=== PATIENT | female | born 1970 | race Caucasian/White ===

== ENCOUNTER 2017-06-23 14:16 | Inpatient (IN) | payer OTHER ==
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
--- NOTE | 2017-06-23 15:07 | CPEKG ---
Heart Rate: 65 RR Interval: 923 P-R Interval: 144 QRSD Interval: 86 QT Interval: 388 QTC Interval: 404 P [place]: 68 QRS [place]: 40 T Wave [place]: -35 EKG Severity - ABNORMAL ECG - EKG Impression: SINUS RHYTHM EKG Impression: NONSPECIFIC T ABNORMALITIES, INFERIOR LEADS Electronically Signed By: Jaclyn Acosta 24-Jun-2017 00:29:00
[2017-06-23] MEDS ORDERED: NS 1,000 ML IV ONE (15:17)
[2017-06-23 15:22] LABS: PLATELET COUNT 276 10^3/uL (150-400)
[2017-06-23] MEDS ORDERED: ALBUTEROL 3 ML DEYVIAL IH ONE (17:07)
[2017-06-23] MEDS ORDERED: NITROGLYCERIN 0.4 MG BTL SL ONE ×2 (18:03→21:41)
[2017-06-23] MEDS ORDERED: ASPIRIN 81 MG CHEWABLE TAB PO ONE (18:04)
[2017-06-23] MEDS ORDERED: MAG HYDROX/AL HYDROX/SIMETH 30 ML UDCUP PO ONE (18:40)
[2017-06-23] MEDS ORDERED: HYOSCYAMINE SULFATE 0.125 MG TAB PO ONE (18:40)
[2017-06-23] MEDS ORDERED: LIDOCAINE 2% VISCOUS 15 ML UDCUP PO ONE (18:40)
[2017-06-23] MEDS ORDERED: ONDANSETRON DISINTEGRATING 4 MG TAB PO PRN (19:33)
[2017-06-23] MEDS ORDERED: ACETAMINOPHEN 325 MG TAB PO PRN (19:33)
[2017-06-23] MEDS ORDERED: ONDANSETRON 4 MG/2 ML VIAL IVP PRN (19:33)
--- NOTE | 2017-06-23 20:04 | CPEKG ---
Heart Rate: 54 RR Interval: 1111 P-R Interval: 120 QRSD Interval: 90 QT Interval: 416 QTC Interval: 395 P [place]: -12 QRS [place]: 32 T Wave [place]: -47 EKG Severity - ABNORMAL ECG - EKG Impression: SINUS RHYTHM EKG Impression: NONSPECIFIC T ABNORMALITIES, DIFFUSE LEADS Electronically Signed By: Jaclyn Acosta 24-Jun-2017 00:28:53
--- NOTE | 2017-06-23 20:06 | GHP ---
[f rep st] HISTORY AND PHYSICAL DATE OF ADMISSION: 06/23/2017 The patient is a pleasant 47-year-old female with a strong family history of coronary artery disease, who presents with some chest symptoms. On Friday, she was doing an exercise stress test and she had symptoms she described as allergies, which was chest tightness and shortness of breath. It radiated to her left jaw. She was unable to complete the class, and this is an uncommon situation for her. She went home. She fell asleep, again uncommon. Yesterday, she went for a hike and felt poorly and went home and went to sleep. Today, she was exerting herself and she felt some chest tightness, was unable to swallow. Tried to drink some water, and then it radiated to her jaw. She went to urgent c are and she was referred to the emergency department. Her father had his 1st heart attack in his 40s. He ultimately of congestive heart failure. She has not had diabetes, high blood pressure, or hyperlipidemia. She has not a habitual cocaine user. She enjoys an active lifestyle. No fever or chills. No cough. No sputum. REVIEW OF SYSTEMS: A complete 10-point review of systems conducted and negative except as noted in t he HPI. PAST MEDICAL HISTORY: Depression. ALLERGIES: Penicillin. HOME MEDICATIONS: Lexapro. SOCIAL HISTORY: Lives in [place], originally from [place]. Does not smoke cigarettes. Drinks rare alcohol. FAMILY HISTORY: As in the HPI. PHYSICAL EXAMINATION: VITAL SIGNS: Afebrile, blood pressure 132/80, pulse 86, breathing 16 times a minute, and 98% in room air. GENERAL: No acute distress. HEENT: Sclerae anicteric. Oropharynx cl ear. Mucous membranes are moist. NECK: Supple without lymphadenopathy or JVD. LUNGS: Clear to au scultation bilaterally. HEART: S1, S2. ABDOMEN: Soft, nontender, nondistended. LOWER EXTREMITIES: Without edema. Calves nontender. SKIN: Without rash. NEUROLOGIC: Nonfocal. LABORATORY DATA: White count is 2.9, hematocrit is 43, MCV is low at 78.1, and platelets are 276,000 . D-dimer is less than 0.027. Chem 7 normal. LFTs normal. Beta hCG is negative. Lipase 111. Tro ponin less than 0.012. Chest x-ray, interpreted by me, shows no acute cardiopulmonary disease. EKG, interpreted by me, show s sinus at 65 with normal axis and intervals. There is no prior for comparison. There is a deep T-w ave inversion in lead III and F with an upright T-wave in lead II. There is 0.[address] depression in lead V2 that is not seen in III or F. the precordial leads looked okay. I have discussed the case Dr. Jaclyn Acosta. ASSESSMENT AND PLAN: A 47-year-old female with chest pain and family history: 1. Chest pain: This is a concerning story in light of an abnormal EKG and strong family history. W e will cycle troponins. She has received an aspirin. Will check a lipid panel and perform an exerci se treadmill in the morning. 2. Microcytosis: The patient has a microcytosis. She continues to menstruate. I will go ahead and check LFTs. 3. Dysphagia: This is possibly secondary to esophageal spasm. This could be considered, if her car diac workup was negative, that this symptom could be consistent with cardiac ischemia. 4. Prophylaxis: Pharmacologic prophylaxis indicated if in the hospital longer than 24 hours. For n ow, will provide sequential compression devices. DISPOSITION: Observation status. /[id number]/MODL
--- NOTE | 2017-06-23 22:04 | CPEKG ---
Heart Rate: 59 RR Interval: 1017 P-R Interval: 148 QRSD Interval: 86 QT Interval: 412 QTC Interval: 409 P [place]: 56 QRS [place]: 25 T Wave [place]: -51 EKG Severity - ABNORMAL ECG - EKG Impression: SINUS RHYTHM EKG Impression: ATRIAL PREMATURE COMPLEX EKG Impression: NONSPECIFIC T ABNORMALITIES, DIFFUSE LEADS Electronically Signed By: Jayden Quinones 24-Jun-2017 11:08:18
[2017-06-24] MEDS: ESCITALOPRAM OXALATE 10 MG TAB PO SCH (08:50)
[2017-06-24] MEDS: ASPIRIN 81 MG CHEWABLE TAB PO SCH (08:51)
[2017-06-24] MEDS ORDERED: NON-FORMULARY NEW DRUG (Herbals/Supplements -Info Only 1 UNIT) PO SCH (09:00)
--- NOTE | 2017-06-24 11:43 | CPR ---
[f rep st] NONINVASIVE CARDIAC PROCEDURE REPORT DATE OF PROCEDURE: 06/24/2017 REASON FOR TEST: Chest tightness. Resting EKG shows a regular sinus rhythm with lateral T-wave inversion. Blood pressure 98/62, heart rate 64 and regular. She reports having a mild chest tightness rating at a 2/10, which is constant and has been unchanged since admission. She otherwise has no complaints. STRESS PORTION: She was exercised according to the [place] protocol for a total of 9 minutes. She reached a MET level of 10.2, maximal blood pressure 146/60, and maximal heart rate 147, which was 85% maximal for her age. She had an occasional PAC. There were no other arrhythmias noted. With exercise, her lateral T-waves did normalize. She had an occasional PVC noted. At peak exercise, Cardiolite was injected followed by saline flush. She exercised a total of 9 minutes. At peak exercise, she did complain of feeling dizzy and winded. RECOVERY: She did spontaneously recover. There were no EKG changes. Final EKG was regular sinus rhythm. Resting recovery blood pressure 100/60. Resting recovery heart rate 77. She continues to have the mild 2/10 constant chest tightness. At this time she currently is stable for imaging. /[id number]/MODL Supervising Physician Jayden Quinones MD MTDD
--- NOTE | 2017-06-24 18:00 | PDCARPN ---
Cardiology Progress Note Chief Complaint: Left sided chest pain Assessment/Plan: Assessment: HPI: Maricruz is a 47-year-old female with a family history of coronary disease. Maricruz developed extreme fatigue during a workout on Friday. The fatigue continued after she ate dinner and went to bed. On Friday she went to yoga and for a hike with a friend. During the hike her friend thought she appeared lethargic. Maricruz felt exhausted after the hike and had to lie on the couch. She felt nauseous and was unable to swallow water. She choked on the water and began to feel lightheaded and dizzy. The next morning, Friday, she woke up and was more lethargic. She called her brother complaining of chest pain radiating into her jaw and left arm. She had associated nausea and went to the Emergency Department. Maricruz was found to have an abnormal EKG suggesting ischemia. She underwent a nuclear stress test that showed anterior wall perfusion deficit. Past Medical History: Denies. Family History: Father had first heart attack at age 53, had stents and CABG. He of CHF in 80s. Social History: Maricruz is very active. She works in [employer]. Plan: I would like Maricruz to have an angiogram given her family history, abnormal EKG, chest discomfort, and abnormal stress test. I have explained the risks, expected benefits and potential complications of this course of action with the patient and she wishes to proceed as planned. Some potential benefits include angina relief, definitive assessment of coronary anatomy and LV function. Complications have been described as , permanent and disabling stroke, heart attack, abnormal heart rhythm, bleeding and damage to blood vessels resulting in tissue or limb loss. 06/24/17 18:01 Reviewed/Discussed With: family, hospitalist Objective: Vital Signs (8 Hrs) Temp Pulse Resp BP Pulse Ox 06/24/17 16:00 36.6 C 62 16 106/62 98 06/24/17 12:00 36.8 C 61 12 110/66 99 Intake/Output (24 Hrs) 06/23/17 06/24/17 06/25/17 05:59 05:59 05:59 Intake Total 350 Output Total 800 Balance -450 Intake: Oral (ml) 350 Output: Urine (ml) 800 Toilet 800 Other: Weight 54.975 kg Result Diagrams: 06/23/17 15:07 03/05/18 15:07 Cardiac Labs: Cardiac Lab Results (72 Hrs) 06/24/17 06/23/17 06/23/17 05:41 23:20 20:10 Troponin I < 0.012 < 0.012 < 0.012 EKG: Sinus rhythm with dynamic T wave changes initially in leads III and AVF. Today she developed new T wave changes in V3 and V4 which were new. - Physical Exam Constitutional: healthy appearing Eyes: PERRL, EOMI Ears, Nose, Mouth, Throat: moist mucous membranes Cardiovascular: regular rate and rhythm Respiratory: clear to auscultate bilat, no crackles, no wheezes Gastrointestinal: no tenderness Skin: no rashes Musculoskeletal: no muscular tenderness Neurologic: AAOx3 Psychiatric: cooperative, interactive Lymph, Heme, Immunologic: no lymphadenopathy ICD10 Worksheet Patient Problems: Problems Problem Status Onset Chest tightness Acute
--- NOTE | 2017-06-24 18:25 | HOSPPROG ---
Hospitalist Progress Note Assessment/Plan: * Chest pain -stress test positive for anterior ischemia -d/w Dr. Bay - cath in am * Hyperlipidemia -will need statin if shown to be + CAD * Iron deficient anemia -still menstruating -consider outpatient colonoscopy -start ferrous sulfate * Depression -Lexapro Subjective: No more CP Objective: Vital Signs Temp Pulse Resp BP Pulse Ox 36.6 C 62 16 106/62 98 06/24/17 16:00 06/24/17 16:00 06/24/17 16:00 06/24/17 16:00 06/24/17 16:00 06/23/17 06/24/17 06/25/17 05:59 05:59 05:59 Intake Total 350 Output Total 800 Balance -450 EKG viewed, my personal interpretation is - new anterior TWI this am Laboratory Tests 06/23/17 06/24/17 23:20 05:41 Iron 45.0 TIBC 367 Iron Saturation 12 L Ferritin 7.5 Troponin I < 0.012 < 0.012 Cholesterol 205 H LDL Cholesterol, Calc 113 H - Physical Exam Constitutional: no apparent distress, appears nourished, not in pain Cardiovascular: No JVD, No edema Respiratory: no respiratory distress, No expiratory wheeze Gastrointestinal: No distension Skin: no rashes or abrasions, no fluctuance, no induration Neurologic: AAOx3, sensation intact bilaterally Psychiatric: interacting appropriately, not anxious, not encephalopathic, thought process linear ICD10 Worksheet Patient Problems: Problems Problem Status Onset Chest tightness Acute
[2017-06-24] MEDS: NITROGLYCERIN 0.4 MG BTL SL PRN (18:43)
--- NOTE | 2017-06-24 20:37 | PDMN ---
Medical Necessity Medical necessity: Patient meets inpatient criteria per physician note and MCG M -40 Angina (High-risk cardiac ischemia findings on noninvasive testing: stress test positive for anterior cardiac ischemia; strong family history of cardiac disease; LOS will be > 2 midnights for cardiac cath/further eval and treatment.)
[2017-06-24] MEDS: TEMAZEPAM 15 MG CAP PO PRN (21:21)
[2017-06-24] MEDS: FERROUS SULFATE 325 MG TAB PO SCH (21:21)
[2017-06-25 05:37] LABS: PLATELET COUNT 225 10^3/uL (150-400)
[2017-06-25] MEDS ORDERED: diphenhydrAMINE 25 MG CAP PO ONE ×2 (06:00→10:20)
[2017-06-25] MEDS ORDERED: FAMOTIDINE 20 MG TAB PO ONE (06:00)
[2017-06-25] MEDS ORDERED: DIAZEPAM 5 MG TAB PO ONE (06:00)
[2017-06-25] MEDS ORDERED: NS 1,000 ML IV ONE (06:00)
[2017-06-25 08:31] LABS: INR 1.05 (0.83-1.16); PROTIME(PATIENT) 13.9 SEC (12.0-15.0)
--- NOTE | 2017-06-25 09:06 | PDPROPOC ---
Sedation Plan of Care Sedation Plan of Care: vital signs stable, mental status noted, patient educated of risks, benefits, alternatives, patient can tolerate sedation ASA Classification: ASA 3 Planned drugs: fentanyl, midazolam Mallampati Score: Class 1 Mallampati Reference Image: Patient passed 3-3-2 rule?: Yes
--- NOTE | 2017-06-25 09:07 | CPEKG ---
Heart Rate: 63 RR Interval: 952 P-R Interval: 152 QRSD Interval: 86 QT Interval: 408 QTC Interval: 418 P [place]: 25 QRS [place]: 59 T Wave [place]: 5 EKG Severity - NORMAL ECG - EKG Impression: SINUS RHYTHM Electronically Signed By: Jayden Danielle 25-Jun-2017 11:45:10
--- NOTE | 2017-06-25 09:07 | PDHPUP ---
History & Physical Update H&P update statement: This history and physical update is based on an assessment of the patient which was completed after admission or registration (within 24 hours), but prior to the surgery/procedure. H&P update: H&P reviewed & patient examined (the patient has evidence of dynamic T wave inversion and also has abnormal nuclear stress CCS Class IV angina and intermediate risk stress test), no change in patient's condition since H&P completed
[2017-06-25] MEDS ORDERED: FAMOTIDINE 20 MG TAB ONE (10:20)
[2017-06-25] MEDS ORDERED: ASPIRIN EC 325 MG TAB PO ONE (10:21)
[2017-06-25] MEDS ORDERED: DIAZEPAM 5 MG TAB ONE (10:21)
[2017-06-25] MEDS: ASPIRIN 81 MG CHEWABLE TAB PO SCH (10:26)
[2017-06-25] MEDS ORDERED: fentaNYL 100 MCG/2 ML INJ ONE (10:35)
[2017-06-25] MEDS ORDERED: VERAPAMIL 5 MG/2 ML VIAL ONE (10:35)
[2017-06-25] MEDS ORDERED: MIDAZOLAM 2 MG/2 ML VIAL ONE (10:35)
[2017-06-25] MEDS ORDERED: LIDOCAINE 1% 300 MG/30 ML SDV ONE (10:35)
[2017-06-25] MEDS ORDERED: HEPARIN 10,000 UNIT/10 ML MDV (1,000 UNIT/ML) ONE (10:36)
[2017-06-25] MEDS ORDERED: IOPAMIDOL (ISOVUE-370) 150 ML BTL IV ONE (10:36)
[2017-06-25] MEDS: NITROGLYCERIN 0.4 MG BTL SL PRN (10:37)
[2017-06-25] MEDS ORDERED: ONDANSETRON 4 MG/2 ML VIAL ONE (10:51)
--- NOTE | 2017-06-25 10:56 | PDDXCAT ---
Diagnostic Cath Note - . Date: 06/25/17 Product Development Assistant: Shanique Indication: Patient w angina/susp CAD, cannot be risk stratified by other means , other (Abnormal stress test, EKG suggestive of ischemia, unstable angina) - Procedure Access: left wrist Procedure: left heart catheterization - Materials Left Heart Cath size: 5F Left Heart Cath materials: standard multipack (JL4, JR4, pigtail) - Findings-Left Heart Catheterization LM: The LM is 7mm in size and bifurcates into an LAD and circumflex system. There is RENE III flow with no evidence of obstruction. LAD: The LAD is 5mm in size. RENE III flow throughout. LCX: The left circumflex is 3mm in size. RENE III flow. RCA: The RCA is 3mm in size and dominant. It gives rise to the PDA and PLV branches. There is no flow limiting obstruction. EDP: 17mmHg Wall motion: There are no segmental wall motion abnormalities identified. There are 3 sinuses of Valsalva. There is no evidence of aortic stenosis on pull back. There is no alexandru aneurysm or dissection. Complications: NONE. Estimated blood loss: <50ml Closure method: Angioseal Assessment: There is no evidence of flow limiting obstruction, dissection, or thrombus. RENE III flow throughout the coronary circulation. The cause of the patient's chest discomfort is not identified on the basis of this study. Plan: Transthoracic echo will be performed to rule out pericardial effusion/ pericarditis. Intervention: NONE. Patient Problems: Problems Problem Status Onset Chest tightness Acute
[2017-06-25] MEDS ORDERED: ATROPINE SULFATE 1 MG/10 ML SYR IVP PRN (11:42)
--- NOTE | 2017-06-25 14:59 | ASMTCASEMG ---
Living Arrangements What is your living Answers: Alone arrangement? Who do you live with? Type Of Residence What kind of residence do Answers: House you live in? Discharge Plan Comments Coordination Status Comments Notes: Pts case discussed in morning rounds. Pt is a 47 y/o female admitted for chest pain. Pt will go to the company laborer today. Pt will most likely have a stent placed. Pt will most likely not have any d/c needs. No therapies ordered at this time. ROSALBA made a new PCP appointment w/ Dr. Danish Rangel, per her request. Appointment is scheduled for 07/14/17 at 9:30AM. CM inputted info into to [employer]. CM available for changes. Plan: Independent Date Signed: 06/25/2017 02:58 PM Electronically Signed By:VONNIE Martinez
[2017-06-25] MEDS ORDERED: ALBUTEROL 3 ML DEYVIAL IH ONE (15:16)
[2017-06-25] MEDS: ESCITALOPRAM OXALATE 10 MG TAB PO SCH (15:34)
[2017-06-25] MEDS: FERROUS SULFATE 325 MG TAB PO SCH ×2 (15:35→19:37)
[2017-06-25] MEDS ORDERED: IBUPROFEN 600 MG TAB PO SCH (16:00)
--- NOTE | 2017-06-25 17:16 | PDDCSUM ---
Discharge Summary Discharge Summary: 47 yo female admitted with chest pain. She reported chest pain to her left side of her chest with radiation to her left side of neck. She also reported left axillary pain. Her chest pain has gotten better. She had a stress test which was positive for anterior ischemia. However, cardiac cath was unremarkable. TTE following Cardiac cath was unremarkable per unofficial report. Official read is pending. A D-Dimer was negative Upon further questioning she reports some wheezing on onset of chest pain prior to admission. The etiology of the chest pain remains unknown but there is no e/o that the etiology is cardiovascular given an unremarkable cath. Her D-Dimer is unremarkable which would make a P.E. unlikely. Etiology could be muscular vs RAD vs costochondritis. Her pain appears to be worse on expiration. She will be d/c home with a trial of bronchodilator and Ibuprofen. She will f/u with her pcp in one week. * Chest pain * Iron deficient anemia -still menstruating -consider outpatient colonoscopy -start ferrous sulfate * Depression -Lexapro Exam: VSS NAD AAOX3 RRR CTA B, NO WHEEZING S/NT/ND NO LE EDEMA MEDS: SEE MED REC F/U: WITH PCP IN ONE WEEK TOTAL TIME SPENT ON D/C IS 45 MINUTES
--- NOTE | 2017-06-25 17:34 | ECHO ---
[email or web address] [address] [address] Main: [phone] Fax: Transthoracic Echocardiogram Name: YANY BULLARD MR#: [id number] Study Date: 06/25/2017 Study Time: 12:34 PM Date of : 1970 Age: 47 year(s) Height: 167.6 cm (66 in.) Weight: 54.89 kg (121 lb.) BSA: 1.62 m2 Gender: Female Examination: Echo Indication: Intermittent chest pain with negative cath/R/O pericardial effusion/pericarditis Image Quality: Contrast: Requested by: Faisal [place] BP: 95 mmHg/55 mmHg Heart Rate: Rhythm: Indication: Intermittent chest pain with negative cath/R/O pericardial effusion/pericarditis Procedure Staff Pathology Laboratory Technologist: Reading Physician: Jayden Quinones MD Requesting Provider: Pathology Laboratory Technologist: Amy Herrera RDCS Reading Physician: Jayden Quinones MD Requesting Provider: Conclusions: Normal size left ventricle. No LV hypertrophy. Normal global systolic LV function. The ejection fraction is estimated to be 65-70 %. Normal size right ventricle. The left atrium is normal in size. The right atrium is normal in size. Trivial to mild mitral regurgitation. The aortic valve is normal in appearance and function. Pulmonary valve not well visualized. No pericardial effusion. Trace anterior pericardial effusion with echogenicity within vs. fat pad.. Measurements: Chambers Valvular Assessment AV/MV Valvular Assessment TV/PV Normal Normal Normal Name Value Range Name Value Range Name Value Range Ao Shanae (MM): 2.9 cm (2.2 cm-3.7 AV meanP mmHg ( - ) cm) MV E Vmax: 0.64 m/s ( - ) IVSd (2D): 0.5 cm (0.6 cm-1.1 MV A Vmax: 0.41 m/s ( - ) cm) MV E/A: 1.56 ( - ) LVDd (2D): 4.5 cm (3.9 cm-5.3 cm) LVDs (2D): 2.7 cm (2.1 cm-4 cm) LVPWd (2D): 0.6 cm ( - ) Patient: YANY BULLARD Study Date: 06/25/2017 Page 1 of 2 12:34 PM LVEF (MOD4): 70 % (>=55 %) EF Range: 65-70 % Continued Measurements: Chambers Valvular Assessment AV/MV Name Value Name Value LADs: 2.8 cm MV E/E' Septal: 7.90 LADs Lon.5 cm MV E/E' Lateral: 7.20 LA Area: 14.8 cm2 Findings: Left Ventricle: Normal size left ventricle. No LV hypertrophy. Normal global systolic LV function. The ejection fraction is estimated to be 65-70 %. No regional wall motion abnormality. Normal diastolic LV function. Right Ventricle: Normal size right ventricle. Left Atrium: The left atrium is normal in size. Right Atrium: The right atrium is normal in size. Mitral Valve: The mitral valve is normal in appearance and function. Trivial to mild mitral regurgitation. Aortic Valve: The aortic valve is normal in appearance and function. Tricuspid Valve: The tricuspid valve is normal in appearance and function. Pulmonic Valve: Pulmonary valve not well visualized. Aorta: The aorta is normal. Pericardium: No pericardial effusion. Trace anterior pericardial effusion with echogenicity within vs. fat pad.. (No Signature Object) Patient: YANY BULLARD Study Date: 06/25/2017 Page 2 of 2 12:34 PM [id number]
[2017-06-25] MEDS: KETOROLAC 30 MG/1 ML SDV IVP SCH (19:33)
[2017-06-25] MEDS: TEMAZEPAM 15 MG CAP PO PRN (22:35)
[2017-06-26] MEDS: KETOROLAC 30 MG/1 ML SDV IVP SCH (06:42)
[2017-06-26 08:08] VITALS: BP 115/59; PULSE 62; RESP 14; TEMP 97.7; O2SAT 95
[2017-06-26] MEDS: FERROUS SULFATE 325 MG TAB PO SCH (09:14)
[2017-06-26] MEDS: ASPIRIN 81 MG CHEWABLE TAB PO SCH (09:14)
[2017-06-26] MEDS: ESCITALOPRAM OXALATE 10 MG TAB PO SCH (09:14)
--- NOTE | 2017-06-26 11:55 | PDDCSUM ---
Discharge Summary Discharge Summary: The patient discharge was held due recurrence of left chest/shoulder pain. She was started on Toradol with much improvement. She c/o of minimal discomfort today. She is in agreement with discharge. HPI/HOSPITAL COURSE 47 yo female admitted with chest pain. She reported chest pain to her left side of her chest with radiation to her left side of neck. She also reported left axillary pain. Her chest pain has gotten better. She had a stress test which was positive for anterior ischemia. However, cardiac cath was unremarkable. TTE following Cardiac cath was unremarkable A D-Dimer was negative The etiology of the chest pain remains unknown, possibly pericarditis vs costochondritis vs other muscular skeletal. She has improved with NSAIDS. She will f/u with her pcp in one week. * Chest pain * Iron deficient anemia -still menstruating -consider outpatient colonoscopy -start ferrous sulfate * Depression -Lexapro Exam: VSS NAD AAOX3 RRR CTA B, NO WHEEZING Non Reproducible Chest pain S/NT/ND NO LE EDEMA MEDS: SEE MED REC. Ibuprofen scheduled was started Consultants: Cardiology F/U: WITH PCP IN ONE WEEK TOTAL TIME SPENT ON D/C IS 35 MINUTES
== END 2017-06-26 11:35 | disposition home or self-care (01) | DRG 287 ==
LOC: F2W 20:18 → OBSVTOIN 06-24 17:24
PROVIDERS: ADMIT Internal Medicine; ATTEND Family Medicine
PROC: 4A023N7 Measurement of Cardiac Sampling and Pressure, Left Heart, Percutaneous Approach (ICD-10-PCS; principal; 2017-06-25)
PROC: B2151ZZ Fluoroscopy of Left Heart using Low Osmolar Contrast (ICD-10-PCS; principal; 2017-06-25)
PROC: B2111ZZ Fluoroscopy of Multiple Coronary Arteries using Low Osmolar Contrast (ICD-10-PCS; principal; 2017-06-25)
DX: R07.89 Other chest pain (principal); R94.39 Abnormal result of other cardiovascular function study; Z82.49 Family history of ischemic heart disease and other diseases of the circulatory system; D50.9 Iron deficiency anemia, unspecified; F32.9 Major depressive disorder, single episode, unspecified; E78.5 Hyperlipidemia, unspecified
CPT/HCPCS: A9500; G0378; J1644; J1885; J2250; J2405; J3010; J7613; Q9967

== ENCOUNTER 2018-04-21 11:48 | Inpatient (IN) | payer OTHER ==
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
[2018-04-21] MEDS ORDERED: ONDANSETRON 4 MG/2 ML VIAL IVP ONE (12:42)
[2018-04-21] MEDS ORDERED: HYDROmorphONE/DILAUDID 2 MG/ML INJ IVP ONE ×2 (12:42→13:58)
[2018-04-21] MEDS ORDERED: NS 1,000 ML IV ONE (12:42)
[2018-04-21 13:05] LABS: PLATELET COUNT 234 10^3/uL (150-400)
[2018-04-21 13:14] LABS: INR 1.06 (0.83-1.16)
[2018-04-21] MEDS ORDERED: IOPAMIDOL (ISOVUE 370) 100 ML BTL IV ONE (13:21)
[2018-04-21] MEDS ORDERED: HYDROmorphONE/DILAUDID 1 MG/ML INJ ONE (13:57)
[2018-04-21] MEDS ORDERED: PROMETHAZINE HCL 25 MG/ML INJ IVP PRN (14:20)
[2018-04-21] MEDS ORDERED: ACETAMINOPHEN 325 MG TAB PO PRN (14:20)
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
[2018-04-21] MEDS ORDERED: LR 1,000 ML IV ONE (15:19)
[2018-04-21] MEDS ORDERED: MIDAZOLAM 2 MG/2 ML VIAL IVP ONE (15:56)
--- NOTE | 2018-04-21 15:57 | PDANEPAE ---
ANE History of Present Illness labial hematoma evacuation ANE Past Medical History - Pulmonary History Hx Oxygen in Use at Home: No Hx Sleep Apnea: No - Endocrine History Hx Diabetes: No - Chronic Pain History Chronic Pain: No ANE Review of Systems Review of Systems: ANE Patient History - Allergies Allergies/Adverse Reactions: Penicillins Allergy (Unknown, Verified 04/21/18 15:49) Other-Enter Comments - Home Medications Home Medications: Albuterol [Proventil Inhaler HFA (*)] 1 - 2 puffs IH Q6H PRN 04/21/18 [Last Taken Unknown] Escitalopram Oxalate [Lexapro] 5 mg PO DAILY 04/21/18 [Last Taken 04/21/18] - Smoking Hx Smoking Status: Never smoked ANE Labs/Vital Signs - Labs Result Diagrams: 04/22/18 04:38 04/21/18 12:53 - Vital Signs Blood Pressure: 134/71 Heart Rate: 88 Respiratory Rate: 16 O2 Sat (%): 95 Height: 167.64 cm Weight: 58.06 kg ANE Physical Exam - Airway Neck exam: FROM Mallampati Score: Class 1 Mouth exam: normal dental/mouth exam - Pulmonary Pulmonary: no respiratory distress - Cardiovascular Cardiovascular: regular rate and rhythym - ASA Status ASA Status: II ANE Anesthesia Plan Anesthesia Plan: general endotracheal anesthesia Urgent/Emergent Case: Dilan chao completed preop but documented later for safe timely pt care
[2018-04-21] MEDS ORDERED: LIDOCAINE 2% 100 MG/5 ML SYR ONE (16:02)
[2018-04-21] MEDS ORDERED: PROPOFOL 200 MG/20 ML VIAL ONE (16:03)
[2018-04-21] MEDS ORDERED: fentaNYL 100 MCG/2 ML INJ ONE ×2 (16:03→17:52)
[2018-04-21] MEDS ORDERED: SUGAMMADEX SODIUM 200 MG/2 ML VIAL IVP ONE (16:03)
[2018-04-21] MEDS ORDERED: ONDANSETRON 4 MG/2 ML VIAL ONE (16:03)
[2018-04-21] MEDS ORDERED: KETOROLAC 30 MG/1 ML SDV ONE (16:03)
[2018-04-21] MEDS ORDERED: ROCURONIUM 50 MG/5 ML VIAL ONE (16:03)
[2018-04-21] MEDS ORDERED: DEXAMETHASONE 4 MG/ML VIAL ONE (16:03)
[2018-04-21] MEDS ORDERED: BUPIVACAINE 0.5% 30 ML SDV ONE (16:04)
[2018-04-21] MEDS ORDERED: MIDAZOLAM 2 MG/2 ML VIAL ONE (16:06)
--- NOTE | 2018-04-21 16:19 | ASMTCMCOM ---
CM Note CM Note Notes: Reviewed chart. Pt presented to the Emergency Department after falling on a shovel last night. History includes sinus surgery and a prior craniotomy. Pt is single, employed and lives in [place]. Pt is accompanied by several friends and has a good support network. Pt to be admitted for surgical evacuation of a hematoma on her buttock and for further observation. Discharge needs remain unclear at this time. Anticipate pt will likely discharge home independently when medically stable. CM will continue to follow. Discharge Plan: Likely independent, CM to follow for any potential needs Date Signed: 04/21/2018 04:18 PM Electronically Signed By:Nemo Salmon RN
[2018-04-21] MEDS ORDERED: ePHEDrine SULFATE 25 MG/5 ML SYR ONE (16:27)
[2018-04-21] MEDS ORDERED: ONDANSETRON 4 MG/2 ML VIAL IVP PRN (16:37)
[2018-04-21] MEDS ORDERED: LR 500 ML IV PRN (16:37)
[2018-04-21] MEDS ORDERED: HYDROCODONE/APAP 5/325 TAB PO PRN (16:37)
[2018-04-21] MEDS ORDERED: oxyCODONE IR 5 MG TAB PO PRN (16:37)
[2018-04-21] MEDS ORDERED: ALBUTEROL 3 ML DEYVIAL IH PRN (16:37)
[2018-04-21] MEDS ORDERED: HYDROmorphONE/DILAUDID 2 MG/ML INJ IVP PRN (16:37)
[2018-04-21] MEDS ORDERED: ACETAMINOPHEN 500 MG TAB PO PRN (16:37)
[2018-04-21] MEDS ORDERED: NALOXONE HCL 0.4 MG/ML INJ IVP PRN (16:37)
[2018-04-21] MEDS ORDERED: fentaNYL 100 MCG/2 ML INJ IVP PRN (16:37)
[2018-04-21] MEDS ORDERED: METOCLOPRAMIDE 10 MG/2 ML VIAL IVP PRN (16:37)
[2018-04-21] MEDS ORDERED: ceFAZolin 2 GM/DEXTROSE 100 ML IV ONE (17:00)
--- NOTE | 2018-04-21 17:55 | POSTOPPROG ---
Post Op Note Date of Operation: 04/21/18 Surgeon: Fiona Wilkes Anesthesiologist: alfred Anesthesia: GET(General Endotracheal) Pre-op Diagnosis: buttock hematoma Post-op Diagnosis: same Indication: 48 yo with buttock and labia hematoma Procedure: eua evac hematoma Findings: depth 17 cm Inf/Abcess present in the surg proc area at time of surgery?: No Depth: Superfical (Skin SQ) EBL: 50-100 Drains: Milo Reyez
--- NOTE | 2018-04-21 18:08 | GOP ---
DATE OF OPERATION: 04/21/2018 SURGEON: Fiona Wilkes MD ANESTHESIA: General. ANESTHESIOLOGIST: Marv Mensah MD. PREOPERATIVE DIAGNOSIS: Large hematoma, buttock and labia. POSTOPERATIVE DIAGNOSIS: Large hematoma, buttock and labia. PROCEDURE PERFORMED: Exam under anesthesia and evacuation of hematoma. FINDINGS: The hematoma was extremely large, measuring at least 17 cm in depth, and going from her right labia down past her buttock. SPECIMENS: None. ESTIMATED BLOOD LOSS: 100 cc of old blood and clot. INDICATIONS: The patient is a 48-year-old woman, who fell last night, striking her buttock on a blunt object. The hematoma became tense, and she was having trouble even urinating. DESCRIPTION OF PROCEDURE: The patient was brought into the operating room and placed supine on the table. General anesthesia was administered. She was placed in a lithotomy position. Her perineum and bottom were prepped and draped in the usual sterile fashion. I began by doing a vaginal exam. I did not see any tearing of the vaginal wall. I then examined her rectum and again did not see any abnormalities. I made an incision over her right buttock, dissected down through the subcutaneous tissue, and immediately entered a very large hematoma cavity. I had to evacuate a lot of old clot. I performed suction irrigation. There was clearly disruption of muscle layer. Hemostasis was very difficult to achieve due to muscle being involved. I placed Surgicel and direct pressure. I performed electrocautery, and I also placed Rebecca. At the end of the case, I was satisfied with hemostasis. As the depth was 17 cm, it was very difficult to adequately visualize the entire area. I placed a 19 round channel drain exiting the right buttock and sewed this into place with 3- 0 nylon. I closed the skin with 3-0 nylon. Dressings were applied. She was taken out of the lithotomy position, awakened, extubated, and transferred to PACU in stable condition. /[id number]/MODL MTDD
[2018-04-21] MEDS: ONDANSETRON 4 MG/2 ML VIAL IVP PRN (19:20)
[2018-04-21] MEDS: LORazepam 1 MG TAB PO PRN (20:09)
[2018-04-21] MEDS: NS 1,000 ML IV SCH (20:11)
[2018-04-21] MEDS: HYDROCODONE/APAP 5/325 TAB PO PRN (20:21)
[2018-04-22] MEDS: ONDANSETRON 4 MG/2 ML VIAL IVP PRN ×3 (00:56→09:44)
[2018-04-22 05:15] LABS: PLATELET COUNT 165 10^3/uL (150-400)
[2018-04-22] MEDS ORDERED: ACETAMINOPHEN 325 MG TAB PO ONE (06:32)
--- NOTE | 2018-04-22 09:38 | SOAPPROG ---
SOAP Progress Note Assessment/Plan: Assessment: POD # 1 s/p evacuation large hematoma buttock and labia. It extends about 17 cm. Acute anemia blood loss. Will transfuse 1 unit as was also more hypotensive this am Now with ecchymosis and fullness RLQ. I suspect this is residual effects from trauma. Will order stat RLQ ultrasound Continue JOHAN drain No Lovenox due to ongoing blood loss SCDS Ambulate Saw at 6:40 and 9:30 am S: More abdominal pain today Lying in bed, appears comfortable CTAB RRR More ecchymosis on abdomen and swelling RLQ. BS present Dressing on bottom cdi Drain with serosang fluid. Much thinner than yesterday Dark ecchymosis but not hard like yesterday Plan: 04/22/18 09:35 Objective: Vital Signs Temp Pulse Resp BP Pulse Ox 37.0 C 73 16 97/63 L 98 04/22/18 09:06 04/22/18 09:06 04/22/18 09:06 04/22/18 09:06 04/22/18 09:06 Laboratory Results 04/22/18 04:38 04/21/18 04/22/18 04/23/18 05:59 05:59 05:59 Intake Total 2511 Output Total 865 40 Balance 1646 -40 PT 14.0 SEC (12.0-15.0) 04/21/18 12:53 INR 1.06 (0.83-1.16) 04/21/18 12:53 ICD10 Worksheet Patient Problems: Problems Problem Status Onset Traumatic hematoma of buttock Acute Chest tightness Acute
[2018-04-22] MEDS: NS 1,000 ML IV SCH (09:44)
--- NOTE | 2018-04-22 12:08 | ASMTCMCOM ---
CM Note CM Note Notes: Chart reviewed for dc planning purposes, Patient s/o evacuation of buttock/labial hematomo. Anemic this am. To recieve unit of PRBC. CM to follow for needs. Plan: TBD Date Signed: 04/22/2018 12:07 PM Electronically Signed By:Reina García RN
[2018-04-22] MEDS: LORazepam 1 MG TAB PO PRN (18:16)
--- NOTE | 2018-04-22 21:54 | POSTANESTH ---
Post Anesthetic Evaluation Cardiovascular Status: Normal, Stable Respiratory Status: Normal, Stable Level of Consciousness/Mental Status: Can Participate in Eval, Alert and Oriented Pain Control: Adequate, Prn Tx Ordered Nausea/Vomiting Control: Adequate, Prn Tx Ordered Complications Possibly Related to Anesthesia: None Noted
[2018-04-23] MEDS: NS 1,000 ML IV SCH ×3 (00:15→16:53)
[2018-04-23] MEDS: LORazepam 1 MG TAB PO PRN ×2 (04:25→16:53)
[2018-04-23 04:53] LABS: PLATELET COUNT 140 10^3/uL (150-400)
[2018-04-23] MEDS ORDERED: ACETAMINOPHEN 325 MG TAB PO ONE (07:52)
--- NOTE | 2018-04-23 07:55 | SOAPPROG ---
SOAP Progress Note Assessment/Plan: Assessment: POD # 2 s/p evacuation large hematoma buttock and labia. It extends about 17 cm. Acute anemia blood loss. Did not respond to transfusion yesterday. Had difficulty working with PT. Will transfuse another unit. If does not respond will get MRI Ecchymosis extending to L buttock. Minor component on abdomen. Ultrasound without fluid collection. Continue JOHAN drain No Lovenox due to ongoing blood loss SCDS Ambulate Saab likely out tomorrow when more mobile and less swelling S: Pain is stable Lying in bed, appears comfortable CTAB RRR Ecchymosis stable on abdomen Ecchymosis extending to Left buttock BS present Dressing on bottom cdi Drain with serosang fluid. Still more sanguious but not high output Bottom is soft and less swelling Plan: 04/22/18 09:35 04/23/18 07:53 Objective: Vital Signs Temp Pulse Resp BP Pulse Ox 37.0 C 80 14 98/53 L 94 04/22/18 18:12 04/23/18 04:00 04/23/18 04:00 04/23/18 04:00 04/23/18 04:00 Laboratory Results 04/23/18 04:04 04/22/18 04/23/18 04/24/18 05:59 05:59 05:59 Intake Total 2511 3360 Output Total 865 2345 Balance 1646 1015 PT 14.0 SEC (12.0-15.0) 04/21/18 12:53 INR 1.06 (0.83-1.16) 04/21/18 12:53 ICD10 Worksheet Patient Problems: Problems Problem Status Onset Traumatic hematoma of buttock Acute Chest tightness Acute
--- NOTE | 2018-04-23 10:21 | PDMN ---
Medical Necessity Medical necessity: MCG: M35 anemia A-1 day: S/P evacuation of large hematoma with JOHAN placed., 1 unit transfused without response another unit to be given. ( hgb 7.9,7.9, Hct 23.8,24.1 PLt 140) Pt still with difficulty with PT, still with sig abd pain., hypotension, status changed to INPT // for ongoing med nec > 2 MN., further monitoring of Labs with IVF, IV pain, IV antiemetics,
[2018-04-23] MEDS: HYDROCODONE/APAP 5/325 TAB PO PRN (21:03)
[2018-04-24] MEDS: HYDROCODONE/APAP 5/325 TAB PO PRN ×6 (01:13→22:02)
[2018-04-24 04:34] LABS: PLATELET COUNT 130 10^3/uL (150-400)
[2018-04-24] MEDS: NS 1,000 ML IV SCH (05:19)
[2018-04-24] MEDS: ONDANSETRON 4 MG/2 ML VIAL IVP PRN (05:32)
--- NOTE | 2018-04-24 08:34 | SOAPPROG ---
SOAP Progress Note Assessment/Plan: Assessment/Plan: POD #3 s/p evacuation large hematoma buttock and labia. It extends about 17 cm. ABLA s/p transfusion x 2 - H/H improving Consider MRI if symptoms not improving Continue JOHAN drain No Lovenox due to ABLA SCDS Ambulate DC ham Regular diet Dispo: continue inpatient for pain control. May DC over weekend S: Walked with walker overnight. swelling improved. pain controlled Lying in bed, appears comfortable CTAB RRR Ecchymosis stable on abdomen Ecchymosis extending to Left buttock BS present Dressing on bottom cdi Drain with thin serosang fluid. Bottom is soft and less swelling Labia with improved swelling. Objective: Vital Signs Temp Pulse Resp BP Pulse Ox 36.9 C 69 18 98/60 L 93 04/24/18 01:12 04/24/18 01:12 04/24/18 01:12 04/24/18 01:12 04/24/18 01:12 Laboratory Results 04/24/18 04:20 04/23/18 04/24/18 04/25/18 05:59 05:59 05:59 Intake Total 2934 Output Total 2560 Balance 374 PT 14.0 SEC (12.0-15.0) 04/21/18 12:53 INR 1.06 (0.83-1.16) 04/21/18 12:53 ICD10 Worksheet Patient Problems: Problems Problem Status Onset Traumatic hematoma of buttock Acute Chest tightness Acute
--- NOTE | 2018-04-24 10:24 | ASMTCMCOM ---
CM Note CM Note Notes: Per surgery notes patient progressing. 48 year old female had blunt force injury to buttock and labia resultining in I&D with drain placed. Per PT cleared for home with walker to aid in anbulation. CM to follow. Plan: Likely home no needs when medically ready for discharge. Date Signed: 04/24/2018 10:24 AM Electronically Signed By:Reina García RN
[2018-04-24] MEDS ORDERED: MAGNESIUM HYDROXIDE 30 ML UDCUP PO PRN (13:20)
[2018-04-24] MEDS ORDERED: BISACODYL 10 MG SUPP PR PRN (13:20)
[2018-04-24] MEDS ORDERED: POLYETHYLENE GLYCOL 3350 17 GM PKT PO PRN (13:20)
[2018-04-24] MEDS ORDERED: LACTULOSE 20 GM/30 ML UDCUP PO PRN (13:20)
[2018-04-24] MEDS: ESCITALOPRAM OXALATE 10 MG TAB PO SCH (14:23)
[2018-04-24] MEDS: SENNOSIDES/DOCUSATE SODIUM TAB PO SCH (22:02)
[2018-04-25] MEDS: HYDROCODONE/APAP 5/325 TAB PO PRN (02:37)
[2018-04-25 05:14] LABS: PLATELET COUNT 151 10^3/uL (150-400)
[2018-04-25] MEDS: LORazepam 1 MG TAB PO PRN ×3 (06:52→21:43)
[2018-04-25] MEDS: ONDANSETRON 4 MG/2 ML VIAL IVP PRN (06:52)
[2018-04-25] MEDS: ESCITALOPRAM OXALATE 10 MG TAB PO SCH (12:31)
[2018-04-25] MEDS: SENNOSIDES/DOCUSATE SODIUM TAB PO SCH ×2 (12:31→21:47)
--- NOTE | 2018-04-25 12:52 | SOAPPROG ---
SOAP Progress Note Assessment/Plan: Assessment: 40-year-old female status post fall with large gluteal and pelvic hematoma Comfortable but difficult to mobilize/minimal drainage/hematocrit 26 in stable/ afebrile Not quite ready for discharge Plan: PT eval/possibly home in the a.m. 04/25/18 12:50 Objective: Vital Signs Temp Pulse Resp BP Pulse Ox 36.6 C 70 18 112/68 95 04/25/18 02:44 04/25/18 02:44 04/25/18 02:44 04/25/18 02:44 04/25/18 02:44 Laboratory Results 04/25/18 04:34 04/24/18 04/25/18 04/26/18 05:59 05:59 05:59 Intake Total 2934 1329 Output Total 2560 1210 10 Balance 374 119 -10 PT 14.0 SEC (12.0-15.0) 04/21/18 12:53 INR 1.06 (0.83-1.16) 04/21/18 12:53 ICD10 Worksheet Patient Problems: Problems Problem Status Onset Traumatic hematoma of buttock Acute Chest tightness Acute
[2018-04-26] MEDS: LORazepam 1 MG TAB PO PRN (06:31)
[2018-04-26] MEDS: ESCITALOPRAM OXALATE 10 MG TAB PO SCH (09:22)
[2018-04-26] MEDS: HYDROCODONE/APAP 5/325 TAB PO PRN (09:26)
[2018-04-26] MEDS: SENNOSIDES/DOCUSATE SODIUM TAB PO SCH (09:38)
[2018-04-26] MEDS ORDERED: traMADol 50 MG TAB PO PRN (13:44)
--- NOTE | 2018-04-26 13:45 | SOAPPROG ---
SOAP Progress Note Assessment/Plan: Assessment: 40-year-old female status post fall with large gluteal and pelvic hematoma Comfortable but difficult to mobilize/minimal drainage/hematocrit 26 in stable/ afebrile Not quite ready for discharge Plan: PT eval/possibly home in the a.m. 04/25/18 12:50 04/26/18 13:43 comfortable/ afebrile/ vs stable/ minimal jus drainage/ doing well with PT/ hct stable home today Objective: Vital Signs Temp Pulse Resp BP Pulse Ox 36.7 C 79 16 108/78 97 04/26/18 09:38 04/26/18 09:38 04/26/18 09:38 04/26/18 09:38 04/26/18 09:38 Laboratory Results 04/25/18 04:34 04/25/18 04/26/18 04/27/18 05:59 05:59 05:59 Intake Total 1329 400 Output Total 0715 102 7147 Balance 119 -320 -2905 PT 14.0 SEC (12.0-15.0) 04/21/18 12:53 INR 1.06 (0.83-1.16) 04/21/18 12:53 ICD10 Worksheet Patient Problems: Problems Problem Status Onset Traumatic hematoma of buttock Acute Chest tightness Acute
--- NOTE | 2018-04-26 14:32 | ASMTLACE ---
KEN Length of stay for Answers: 3 days current admission Acuity / Level of Answers: No Care: Did the patient have an inpatient admission? Comorbidities - select Answers: Other Notes: Prior craniotomy all that apply # of Emergency department Answers: 1-2 visits in the last 6 months Score: 5 Date Signed: 04/26/2018 02:32 PM Electronically Signed By:Reina García RN
[2018-04-26 15:01] VITALS: BP 111/67
--- NOTE | 2018-04-30 11:31 | GDS ---
REASON FOR ADMISSION: 48-year-old female presenting with a large hematoma of the right buttock and perineal area after falling onto a shovel. The patient presented with vomiting secondary to pain and difficulty with urination. There was no penetration of the shovel. PRIMARY DIAGNOSIS: Traumatic hematoma of right buttock. SECONDARY DIAGNOSES: Allergic rhinitis, acute blood loss anemia. HOSPITAL COURSE: 48-year-old female with an extensive traumatic hematoma of the right buttock and perineal area due to a fall into a shovel. CT scan showed a large, dense hematoma of the right buttock with no bony injury. Hematoma was evacuated in the operating room 04/21/2018, and a drain was placed. Postoperative CBC showed acute blood loss anemia with a hemoglobin of 7.9, hematocrit of 23.8. The patient was given 1 unit of packed red blood cells with no response. Hemoglobin of 7.9, hematocrit 24.1, platelets of 140. An additional unit was given and she responded appropriately. Most recent CBC shows hemoglobin at a level of 8.9. She worked with physical therapy. No issues with urination after Saab was removed. Ultrasound was ordered as her abdomen was more swollen. There was no correlate/ CONDITION ON DISCHARGE: Ambulating with assistance, pain well-controlled, and tolerating regular diet. Discharge with JHOAN drain DISCHARGE MEDICATIONS: No new medications upon discharge. FOLLOWUP: Patient to follow up outpatient on 04/29/2018. /[id number]/MODL MTDD
== END 2018-04-26 16:35 | disposition home or self-care (01) | DRG 605 ==
LOC: F1N 16:19 → OBSVTOIN 04-23 10:09
PROVIDERS: ADMIT Surgery; ATTEND Surgery
DX: S30.0XXA Contusion of lower back and pelvis, initial encounter (principal); Y92.015 Private garage of single-family (private) house as the place of occurrence of the external cause; W13.4XXA Fall from, out of or through window, initial encounter; D62 Acute posthemorrhagic anemia
CPT/HCPCS: 82435-PO; 82565-PO; 82947-PO; 84132-PO; 84295-PO; 84484-ER; 84520-PO; 85014-ER; 96374; 97116-GP; 97162-GP; 97530-GP; G0378; J0690; J1100; J1170; J1200; J1885; J2001; J2250; J2270; J2405; J2550; J2704; J3010; P9016; Q9967

== ENCOUNTER 2018-05-02 11:26 | Emergency (ER) | payer OTHER ==
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
[2018-05-02] MEDS ORDERED: HYDROmorphONE/DILAUDID 2 MG/ML INJ IVP ONE (12:02)
[2018-05-02 12:09] LABS: PLATELET COUNT 388 10^3/uL (150-400)
[2018-05-02] MEDS ORDERED: ONDANSETRON 4 MG/2 ML VIAL ONE (12:11)
[2018-05-02] MEDS ORDERED: ONDANSETRON 4 MG/2 ML VIAL IVP ONE (12:12)
[2018-05-02 12:17] LABS: INR 1.07 (0.83-1.16); PROTIME(PATIENT) 14.1 SEC (12.0-15.0)
[2018-05-02 12:54] VITALS: BP 108/64
== END 2018-05-02 12:54 | disposition home or self-care (01) ==
DX: L76.21 Postprocedural hemorrhage of skin and subcutaneous tissue following a dermatologic procedure (principal)
CPT/HCPCS: 96374; J1170; J2405

== ENCOUNTER 2018-05-06 13:15 | Inpatient (IN) | payer OTHER ==
[~2018-05-06 13:15] MED LIST: IOPAMIDOL (ISOVUE 370) 100 ML BTL IV ONE
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
[2018-05-06] MEDS ORDERED: NS 1,000 ML IV ONE (13:45)
[2018-05-06] MEDS ORDERED: ACETAMINOPHEN 325 MG TAB PO PRN (13:48)
[2018-05-06] MEDS ORDERED: KETOROLAC 15 MG/1 ML SDV IVP PRN (13:48)
[2018-05-06] MEDS ORDERED: PROMETHAZINE HCL 25 MG/ML INJ IVP PRN (13:48)
[2018-05-06] MEDS ORDERED: ONDANSETRON 4 MG/2 ML VIAL IVP PRN (13:48)
[2018-05-06 13:53] LABS: PLATELET COUNT 406 10^3/uL (150-400)
[2018-05-06] MEDS ORDERED: D5W 1/2 NS W/ 20 KCl/L 1,000 ML IV SCH (14:00)
[2018-05-06 14:19] LABS: INR 1.1 (0.83-1.16); PROTIME(PATIENT) 14.4 SEC (12.0-15.0)
[2018-05-06] MEDS ORDERED: POLYETHYLENE GLYCOL 3350 17 GM PKT PO PRN (14:59)
[2018-05-06] MEDS ORDERED: BISACODYL 10 MG SUPP PR PRN (14:59)
[2018-05-06] MEDS ORDERED: MAGNESIUM HYDROXIDE 30 ML UDCUP PO PRN (14:59)
[2018-05-06] MEDS ORDERED: LACTULOSE 20 GM/30 ML UDCUP PO PRN (14:59)
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
[2018-05-06] MEDS: ONDANSETRON 4 MG/2 ML VIAL IVP PRN (17:16)
[2018-05-06] MEDS: SENNOSIDES/DOCUSATE SODIUM TAB PO SCH (19:46)
[2018-05-06] MEDS: PROMETHAZINE HCL 25 MG/ML INJ IVP PRN (19:59)
[2018-05-06] MEDS: LORazepam 1 MG TAB PO PRN (21:46)
[2018-05-07] MEDS ORDERED: PANTOPRAZOLE SODIUM 40 MG VIAL IVP SCH (09:00)
[2018-05-07] MEDS: SENNOSIDES/DOCUSATE SODIUM TAB PO SCH ×2 (09:12→22:01)
[2018-05-07] MEDS: PANTOPRAZOLE SODIUM 40 MG VIAL IVP SCH (09:12)
[2018-05-07] MEDS: ESCITALOPRAM OXALATE 10 MG TAB PO SCH (09:12)
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
[2018-05-07] MEDS: ONDANSETRON 4 MG/2 ML VIAL IVP PRN ×2 (16:58→21:49)
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
[2018-05-07] MEDS: KETOROLAC 15 MG/1 ML SDV IVP PRN (18:16)
[2018-05-07] MEDS: ACETAMINOPHEN 325 MG TAB PO PRN (21:49)
[2018-05-07] MEDS: D5W 1/2 NS W/ 20 KCl/L 1,000 ML IV SCH (22:06)
[2018-05-08] MEDS: KETOROLAC 15 MG/1 ML SDV IVP PRN ×3 (01:51→18:50)
--- NOTE | 2018-05-08 08:32 | SOAPPROG ---
SOAP Progress Note Assessment/Plan: Assessment/Plan: 48-year-old woman status post trauma to perineum on 04/21/2018 with evacuation of hematoma. Admitted due to severe nausea vomiting and constipation. CT guided aspiration of retained hematoma today Continues to have nausea in waves - due to perineal pain? Constipation improving-continue bowel protocol Regular diet - not taking much PO due to nausea Start stress ulcer ppx PT OT Subjective: bad frontal headache overnight, problems with pain. felt feverish ( none documented). continues to have pain and nausea Objective: General: Lying comfortably in bed, no acute distress HENT: Normocephalic, no gross hearing deficits, mucous membranes moist, pupils equal and round Lungs: Clear to auscultation bilaterally, No increased work of breathing Cardiac: Regular rate, no peripheral edema Skin: Warm and dry. Ecchymosis of abdomen and perineum improving. Wound on R buttock draining old blood. Neuro: Grossly intact Objective: Vital Signs Temp Pulse Resp BP Pulse Ox 37.0 C 63 14 95/60 L 96 05/07/18 22:17 05/07/18 22:17 05/07/18 22:17 05/07/18 22:17 05/07/18 22:17 05/07/18 05/08/18 05/09/18 05:59 05:59 05:59 Intake Total 1550 Balance 1550 PT 14.4 SEC (12.0-15.0) 05/06/18 13:33 INR 1.10 (0.83-1.16) 05/06/18 13:33 ICD10 Worksheet Patient Problems: Problems Problem Status Onset Dehydration Acute Traumatic hematoma of buttock Acute Vomiting Acute Chest tightness Acute
[2018-05-08] MEDS ORDERED: FAMOTIDINE 20 MG/NACL 50 ML IV SCH (09:00)
[2018-05-08] MEDS: SENNOSIDES/DOCUSATE SODIUM TAB PO SCH ×2 (09:03→20:54)
[2018-05-08] MEDS: ESCITALOPRAM OXALATE 10 MG TAB PO SCH (09:03)
[2018-05-08] MEDS: PANTOPRAZOLE SODIUM 40 MG VIAL IVP SCH (09:07)
[2018-05-08] MEDS: D5W 1/2 NS W/ 20 KCl/L 1,000 ML IV SCH (11:29)
[2018-05-08] MEDS ORDERED: NALOXONE HCL 0.4 MG/ML INJ IVP PRN (11:37)
[2018-05-08] MEDS ORDERED: MEPERIDINE 25 MG/ML SYR IVP PRN (11:37)
[2018-05-08] MEDS ORDERED: PROTAMINE SULFATE 50 MG/5 ML VIAL IVP PRN (11:37)
[2018-05-08] MEDS ORDERED: fentaNYL 100 MCG/2 ML INJ IVP PRN (11:37)
[2018-05-08] MEDS ORDERED: FLUMAZENIL 0.5 MG/5 ML MDV IVP PRN (11:37)
[2018-05-08] MEDS ORDERED: MIDAZOLAM 2 MG/2 ML VIAL IVP PRN (11:37)
[2018-05-08] MEDS ORDERED: NS 1,000 ML IV SCH (11:45)
[2018-05-08] MEDS ORDERED: LIDOCAINE 1% 300 MG/30 ML SDV ONE (12:18)
[2018-05-08] MEDS ORDERED: NALOXONE HCL 0.4 MG/ML INJ ONE (12:39)
[2018-05-08] MEDS ORDERED: FLUMAZENIL 0.5 MG/5 ML MDV IVP ONE (12:39)
[2018-05-08] MEDS ORDERED: HYDROmorphONE/DILAUDID 2 MG/ML INJ ONE (12:41)
[2018-05-08] MEDS ORDERED: IOPAMIDOL (ISOVUE 370) 75 ML BTL IV ONE (13:04)
[2018-05-08] MEDS: PROMETHAZINE HCL 25 MG/ML INJ IVP PRN (13:09)
[2018-05-08] MEDS: ONDANSETRON 4 MG/2 ML VIAL IVP PRN (13:10)
[2018-05-08] MEDS ORDERED: ALTEPLASE 2 MG VIAL ONE ×3 (14:18→17:57)
--- NOTE | 2018-05-08 16:57 | PDMN ---
Medical Necessity Medical necessity: Change to inpt as of 05/08/18 @ 16:36 per MD order and MCG M- 370 Vomiting. 48 y/o w/recent hospitalization for trauma to perineum w/evac of hematoma admitted w/severe nausea, vomiting, and constipation. Upgraded to inpt for persistent N/V, difficulty tolerating PO, still requiring IV antiemetics, had CT guided asp of retained hematoma today, est LOS>2MN for further monitoring /eval/managmenet of above.
[2018-05-08] MEDS: LORazepam 1 MG TAB PO PRN (21:53)
[2018-05-09] MEDS: KETOROLAC 15 MG/1 ML SDV IVP PRN ×2 (08:54→18:31)
[2018-05-09] MEDS: PANTOPRAZOLE SODIUM 40 MG VIAL IVP SCH ×2 (08:55→08:58)
[2018-05-09] MEDS: SENNOSIDES/DOCUSATE SODIUM TAB PO SCH ×2 (08:55→21:26)
[2018-05-09] MEDS: ESCITALOPRAM OXALATE 10 MG TAB PO SCH (08:55)
--- NOTE | 2018-05-09 10:23 | SOAPPROG ---
SOAP Progress Note Assessment/Plan: Assessment: 48-year-old woman status post trauma to perineum on 04/21/2018 with evacuation of hematoma. Admitted due to severe nausea vomiting and constipation. Went to IR yesterday and had drain placed. Initially not much out but with instillation of TPA, hematoma liquifying. Will continue drain. Discussed with IR Tolerating PO diet, appetite improving Continue bowel protocol If continues to progress, plan for discharge tomorrow PT OT Subjective: Feeling improved today. Starting to have appetite and tolerating PO diet without nausea. Good drain output following CT aspiration of retained hematoma. Objective: General: Pleasant. well-groomed woman. Lying comfortably in bed, no acute distress HENT: Normocephalic, no gross hearing deficits, mucous membranes moist, pupils equal and round Lungs: Clear to auscultation bilaterally, No increased work of breathing Cardiac: Regular rate, no peripheral edema Skin: Warm and dry. Ecchymosis of abdomen and perineum continues to improve. Wound on R buttock much softer than yesterday. Drain with good output of serosanginous fluid. Neuro: Grossly intact Plan: 05/07/18 17:40 05/09/18 10:15 05/09/18 10:40 Objective: Vital Signs Temp Pulse Resp BP Pulse Ox 37.2 C 69 16 109/57 L 96 05/09/18 08:18 05/09/18 08:18 05/09/18 08:18 05/09/18 08:18 05/09/18 08:18 05/08/18 05/09/18 05/10/18 05:59 05:59 05:59 Output Total 10 Balance -10 PT 14.4 SEC (12.0-15.0) 05/06/18 13:33 INR 1.10 (0.83-1.16) 05/06/18 13:33 ICD10 Worksheet Patient Problems: Problems Problem Status Onset Dehydration Acute Traumatic hematoma of buttock Acute Vomiting Acute Chest tightness Acute
[2018-05-09] MEDS: LORazepam 1 MG TAB PO PRN (21:26)
[2018-05-09] MEDS: ACETAMINOPHEN 325 MG TAB PO PRN (21:40)
[2018-05-10] MEDS: KETOROLAC 15 MG/1 ML SDV IVP PRN (08:37)
[2018-05-10] MEDS: ESCITALOPRAM OXALATE 10 MG TAB PO SCH (08:42)
[2018-05-10] MEDS ORDERED: PANTOPRAZOLE SODIUM 40 MG TAB PO SCH (09:00)
[2018-05-10] MEDS: SENNOSIDES/DOCUSATE SODIUM TAB PO SCH (09:48)
--- NOTE | 2018-05-10 11:27 | SOAPPROG ---
SOAP Progress Note Assessment/Plan: Assessment: 48-year-old woman status post trauma to perineum on 04/21/2018 with evacuation of hematoma. Admitted due to severe nausea vomiting and constipation. Patient advancing toward normal appetite and is tolerating PO diet. Patient ready to be discharged home. Will discuss with IR about removal of drain prior to discharge. Tolerating PO diet, appetite improving Plan for discharge today; drain may be removed prior to discharge pending discussion with IR PT OT Subjective: Minimal discomfort. Continuing toward normal appetite and tolerating PO diet without nausea. Decreased drain output. Having regular BMs. Patient ready to go home. Objective: General: Pleasant. well-groomed woman. Patient out of bed ambulating comfortably. No acute distress. HENT: Normocephalic, no gross hearing deficits, mucous membranes moist, pupils equal and round Lungs: Clear to auscultation bilaterally, No increased work of breathing Cardiac: Regular rate, no peripheral edema Skin: Warm and dry. Labial bruising much improved. Bruise on R buttock continues to soften and fade. Drain with 10cc output of serosanginous fluid. Neuro: Grossly intact Plan: 05/07/18 17:40 05/09/18 10:15 05/09/18 10:40 05/10/18 11:22 Objective: Vital Signs Temp Pulse Resp BP Pulse Ox 36.4 C 64 12 128/72 H 98 05/10/18 11:09 05/10/18 11:09 05/10/18 11:09 05/10/18 11:09 05/10/18 11:09 05/09/18 05/10/18 05/11/18 05:59 05:59 05:59 Intake Total 1433 Output Total 10 1222 5 Balance -10 211 -5 PT 14.4 SEC (12.0-15.0) 05/06/18 13:33 INR 1.10 (0.83-1.16) 05/06/18 13:33 ICD10 Worksheet Patient Problems: Problems Problem Status Onset Dehydration Acute Traumatic hematoma of buttock Acute Vomiting Acute Chest tightness Acute
[2018-05-10 11:54] VITALS: BP 114/64
--- NOTE | 2018-05-10 17:36 | GDS ---
REASON FOR ADMISSION: A 48-year-old female status post surgical evacuation of gluteal and retroperit pierre hematoma on April 21, 2018, following a mechanical fall onto a shovel. The patient presented to [facility] on May 06, 2018, with nausea, vomiting, constipa tion, and blood draining from surgical site. A CT scan performed showed evolving hematoma that was l iquefying and was retroperitoneal. PRIMARY DIAGNOSIS: Nausea, vomiting, constipation, and dehydration. SECONDARY DIAGNOSIS: Traumatic hematoma to perineum, depression. HOSPITAL COURSE: The patient was admitted May 06, 2018, and constipation improved with bowel pro tocol and IV fluids. The patient continued to have significant nausea and vomiting with very little p.o. intake. CT-guided aspiration of retained hematoma was performed on May 08, 2018, and drain was left in place. The patient continued to have nausea and vomiting with little p.o. intake even wi th IV antiemetics. Stress ulcer therapy started in lieu of persistent pain. Initially not much drai nage was noted following CT-guided aspiration, but with instillation of tPA yielded good output. The patient began feeling much improved and tolerating p.o. diet with increased appetite the following d ay on May 09. The patient continued to progress the next day and was discharged home in good c ondition and with drain removed. CONDITION ON DISCHARGE: Ambulates without assistance, pain well controlled, tolerating p.o. diet wit hout nausea and vomiting. No new medications on discharge. The patient to follow up with me outpati ent in 1-2 weeks. /[id number]/MODL
== END 2018-05-10 13:47 | disposition home or self-care (01) | DRG 605 ==
LOC: EDSTATUS 13:15 → F3E 15:31 → OBSVTOIN 05-08 16:36
PROVIDERS: ADMIT Surgery; ATTEND Surgery
PROC: 0D9P30Z Drainage of Rectum with Drainage Device, Percutaneous Approach (ICD-10-PCS; principal; 2018-05-08 14:10)
DX: S30.0XXA Contusion of lower back and pelvis, initial encounter (principal); E86.0 Dehydration; K59.00 Constipation, unspecified; W13.4XXS Fall from, out of or through window, sequela
CPT/HCPCS: 96374; G0378; J1170; J1885; J2250; J2310; J2405; J2550; J2997; Q9967